=== PATIENT | female | born 1960 | race Caucasian/White ===

== ENCOUNTER 2018-01-14 14:36 | Emergency (ER) | payer BC, OTHER ==
[~2018-01-14] VITALS: Ht 154.9 cm; Wt 107.0 kg
[~2018-01-14 14:36] MED LIST: ALPR.5 PO; AMOCLA875 PO; ATEN25 PO; ATEN50 PO; CEPH500 PO; CIPR500 PO; CITA20 PO; DOCU100 PO; Diflucan100 MG PO; ERGO50000 PO; FLUC150A PO; HYDACE5 PO; HYDR1TAB94 PO; IBUP600 PO; LEVFLO500; LEVSOD50 PO; LISI5 PO; Norco 5-325 Ta1 EACH PO; Norco 7.5-3251 EACH PO; OMEP20ER PO; OXYACE5T PO; OXYB5 PO; OXYC5; PHENERGAN25 MG RC; PROM25 PO; Percocet 5-3251 EACH PO; RANI150 PO; TRAM50 PO; XARELTO10 MG PO; Zofran4 MG PO
[2018-01-14 15:29] LABS: BASOPHILS ABSOLUTE AUTO 0.07 K/mm3 (0.00-0.23); BASOPHILS PERCENT AUTO 1 % (0-2); EOSINOPHILS ABSOLUTE AUTO 0.19 K/mm3 (0.00-0.68); EOSINOPHILS PERCENT AUTO 2 % (0-6); Hemoglobin 12.7 g/dL (11.5-16.0); IMMATURE GRAN ABSOLUTE AUTO 0.09 K/mm3 (0.00-0.10); IMMATURE GRAN PERCENT AUTO 1 % (0-1); LYMPHOCYTES ABSOLUTE AUTO 2.47 K/mm3 (0.84-5.20); LYMPHOCYTES PERCENT AUTO 23 % (21-46); MONOCYTES ABSOLUTE AUTO 0.51 K/mm3 (0.16-1.47); MONOCYTES PERCENT AUTO 5 % (4-13); Mean Corpuscular HGB 31.1 pg (26.0-34.0); Mean Corpuscular HGB Conc 32.6 g/dL (31.5-36.5); Mean Corpuscular Volume 96 fL (80-100); Mean Platelet Volume 10.7 fL (9.1-12.4); NEUTROPHILS ABSOLUTE AUTO 7.43 K/mm3 (1.96-9.15); NEUTROPHILS PERCENT AUTO 69 % (41-73); Platelet Count 255 K/mm3 (150-400); RDW Coefficient Variation 12.8 % (11.7-14.2); Red Blood Cell Count 4.08 M/mm3 (3.80-5.20); White Blood Cell Count 10.76 K/mm3 (4.00-11.30)
[2018-01-14 15:50] LABS: Alanine Aminotransfer (ALT/SGP 22 U/L (12-78); Albumin, Blood 3.9 g/dL (3.4-5.0); Alk Phos 106 U/L (50-136); Anion Gap 6 mmol/L (6-16); Aspartate Aminotrans (AST/SGOT 13 U/L (12-37); Bilirubin, Total 0.2 mg/dL (0.1-1.0); Blood Urea Nitrogen 15 mg/dL (8-24); Bun/Creatinine Ratio 22.3 (12.0-20.0); CO2, Blood 27 mmol/L (21-32); Calcium, Blood 8.9 mg/dL (8.5-10.1); Chloride, Blood 109 mmol/L (98-108); Creatinine, Blood 0.67 mg/dL (0.40-1.00); Globulin, Blood 3.8 g/dL (2.2-4.0); Glomerular Filtration Rate >60 (60-); Glucose, Blood 96 mg/dL (70-99); Potassium, Blood 3.9 mmol/L (3.5-5.5); Sodium, Blood 142 mmol/L (136-145); Total Protein, Blood 7.7 g/dL (6.4-8.2)
[2018-01-14] MEDS ORDERED: MAGOXI400 PO (17:19)
[2018-01-14] MEDS ORDERED: LEVSOD125 PO (17:20)
[2018-01-14] MEDS ORDERED: LISI20 PO (17:20)
[2018-01-14 17:23] LABS: Source, Urine Clean Catch
[2018-01-14 17:26] LABS: Bilirubin, Urine Neg (Neg); Blood, Urine Neg (Neg); Glucose Qualitative, Urine Neg (Neg); Ketones, Urine Neg (Neg); Leukocyte Esterase, Urine 2+ (Neg); Nitrite, Urine Neg (Neg); Protein, Urine Neg (Neg); Specific Gravity, Urine 1.005 (1.003-1.022); Urobilinogen, Urine NORM (Normal)
[2018-01-14 17:32] LABS: Appearance, Urine Clear (Clear); Color, Urine Yellow (P-Yellow)
[2018-01-14 17:37] LABS: Red Blood Cells, Urine 0-2 /hpf (0-2); Squamous Epithelial Cells Few /hpf (Few)
[2018-01-14 17:38] LABS: Bacteria Few /hpf
[2018-01-14] MEDS ORDERED: CEFD300 PO (19:12)
[2018-01-14] MEDS ORDERED: HYDR1TAB94 PO (19:12)
[2018-01-14] MEDS ORDERED: Zofran Odt4 MG PO (19:12)
== END 2018-01-14 20:09 | disposition home or self-care (01) ==
LOC: ER 14:36
PROVIDERS: Emergency Medicine; Internal Medicine
DX: N12 Tubulo-interstitial nephritis, not specified as acute or chronic (principal); I10 Essential (primary) hypertension; Z88.1 Allergy status to other antibiotic agents; Z79.899 Other long term (current) drug therapy; Z87.442 Personal history of urinary calculi; Z90.710 Acquired absence of both cervix and uterus; Z90.49 Acquired absence of other specified parts of digestive tract
CPT/HCPCS: 76770; 80053; 81001; 85025; 96361; 96374; 96375; 99284; J0696; J1170; J1885; J7030

== ENCOUNTER → 2018-01-21 | Outpatient (CLI) | payer BC, OTHER ==
[~2018-01-21] MED LIST changes: +CEFD300 PO; +LEVSOD125 PO; +LISI20 PO; +MAGOXI400 PO; +Zofran Odt4 MG PO
== END | disposition home or self-care (01) ==
LOC: LAB 11:10
DX: R10.9 Unspecified abdominal pain (principal)
CPT/HCPCS: 87077; 87086; 87186

== ENCOUNTER → 2018-01-31 | Outpatient (CLI) | payer BC, OTHER | END | disposition home or self-care (01) | LOC: LAB UCHC 16:18 | DX: R10.9 Unspecified abdominal pain (principal) | CPT/HCPCS: 87086 ==

== ENCOUNTER 2025-05-17 02:26 | Day surgery (SDC) | payer BC ==
[2025-05-17] MEDS ORDERED: Lidocaine HCl 4% Cream 5 GM ONE (08:29)
== END 2025-05-17 23:00 | disposition home or self-care (01) ==
LOC: WOUND 02:26
DX: S91.001A Unspecified open wound, right ankle, initial encounter (principal); Z96.661 Presence of right artificial ankle joint; X58.XXXA Exposure to other specified factors, initial encounter
CPT/HCPCS: A9270; G0463

== ENCOUNTER 2025-05-25 02:26 | Day surgery (SDC) | payer BC ==
[2025-05-25] MEDS ORDERED: Lidocaine HCl 4% Cream 5 GM ONE (10:20)
== END 2025-05-25 23:00 | disposition home or self-care (01) ==
LOC: WOUND 02:26
DX: S91.001A Unspecified open wound, right ankle, initial encounter (principal); X58.XXXA Exposure to other specified factors, initial encounter
CPT/HCPCS: A9270

== ENCOUNTER 2025-06-01 04:22 | Day surgery (SDC) | payer BC ==
[2025-06-01] MEDS ORDERED: Lidocaine HCl 4% Cream 5 GM ONE (10:22)
== END 2025-06-01 22:00 | disposition home or self-care (01) ==
LOC: WOUND 04:22
DX: S91.001A Unspecified open wound, right ankle, initial encounter (principal); I10 Essential (primary) hypertension; X58.XXXA Exposure to other specified factors, initial encounter
CPT/HCPCS: A9270

== ENCOUNTER 2025-06-08 00:43 | Day surgery (SDC) | payer BC ==
[2025-06-08] MEDS ORDERED: Lidocaine HCl 4% Cream 5 GM ONE (09:52)
== END 2025-06-08 23:00 | disposition home or self-care (01) ==
LOC: WOUND 00:43
DX: S91.001A Unspecified open wound, right ankle, initial encounter (principal); I10 Essential (primary) hypertension; Z96.661 Presence of right artificial ankle joint; X58.XXXA Exposure to other specified factors, initial encounter
CPT/HCPCS: A9270; G0463

== ENCOUNTER 2025-06-22 01:15 | Day surgery (SDC) | payer BC | END 2025-06-22 23:00 | disposition home or self-care (01) | LOC: WOUND 01:15 | DX: S81.001A Unspecified open wound, right knee, initial encounter (principal); I10 Essential (primary) hypertension; W57.XXXA Bitten or stung by nonvenomous insect and other nonvenomous arthropods, initial encounter | CPT/HCPCS: G0463 ==

== ENCOUNTER 2025-07-06 08:26 | Day surgery (SDC) | payer BC | END 2025-07-06 23:00 | disposition home or self-care (01) | LOC: WOUND 08:26 | DX: S91.001D Unspecified open wound, right ankle, subsequent encounter (principal); L08.89 Other specified local infections of the skin and subcutaneous tissue; I10 Essential (primary) hypertension; Z87.828 Personal history of other (healed) physical injury and trauma | CPT/HCPCS: G0463 ==

== ENCOUNTER 2025-07-15 09:09 | Day surgery (SDC) | payer BC | END 2025-07-15 23:00 | disposition home or self-care (01) | LOC: WOUND 09:09 | DX: S91.001D Unspecified open wound, right ankle, subsequent encounter (principal); I10 Essential (primary) hypertension; Z87.828 Personal history of other (healed) physical injury and trauma | CPT/HCPCS: G0463 ==

== ENCOUNTER 2025-10-29 07:30 | Observation (INO) | payer BC ==
[~2025-10-29] VITALS: Ht 154.9 cm; Wt 96.0 kg
[~2025-10-29 07:30] MED LIST changes: +GABA300 PO; -LISI20 PO; +Prinivil10 MG PO
[2025-11-02] VITALS (22 sets, daily range): BP systolic 131–149; BP diastolic 61–83
[2025-11-02] MEDS ORDERED: CeFAZolin Sodium 2,000 MG in NS 100 ML IV SCH (06:20)
[2025-11-02] MEDS ORDERED: Tranexamic Acid 100 ML IV SCH (06:20)
[2025-11-02] MEDS ORDERED: Ropivacaine 0.5% HCl/Pf 123.125 MG,EPINEPHrine HCL 0.25 MG,Ketorolac Tromethamine 15 MG... INFIL SCH (06:20)
[2025-11-02] MEDS ORDERED: FentaNYL Citrate 50 MCG/ML 2 ML Injection ONE ×3 (06:46→18:29)
[2025-11-02] MEDS ORDERED: Ondansetron HCl 2 MG / ML 2ML Vial ONE ×2 (06:49→15:58)
[2025-11-02] MEDS ORDERED: Dexamethasone Sod Phos 10 MG/ML 1ML VIAL ONE (06:49)
[2025-11-02] MEDS ORDERED: Rocuronium Bromide 10 MG/ML 5ML Injection IV ONE (06:49)
[2025-11-02] MEDS ORDERED: Bupivacaine 0.5% HCl 5 MG/ML 30MLVIAL ONE (07:03)
[2025-11-02] MEDS ORDERED: CeFAZolin Sodium 2,000 MG VIAL ONE (07:03)
--- NOTE | 2025-11-02 07:16 | NUR ---
EARING TAPED TO LEFT EAR, WAIVER SIGNED. NO OTHER JEWELRY ON PER PATIENT. KNEE HIGH DARRYL HOSE WITH CALF PAS APPLIED TO LLE.
--- NOTE | 2025-11-02 07:20 | NUR ---
TIME OUT WITH DR BURGOS FOR POPLITEAL AND ADDUCTOR CANAL NERVE BLOCK AT 0724. 2L O2/NC IN PLACE. MONITOR INTACT. START TIME 07, END 0737.
--- NOTE | 2025-11-02 07:43 | NUR ---
DR PERERA AT BEDSIDE SPEAKING TO PATIENT ABOUT DELAY FOR SURGERY.
--- NOTE | 2025-11-02 08:02 | NUR ---
PATIENT SITTING UP IN BED RESTING. PLAN FOR PRIVATE ROOM ON SURGICAL FLOOR FOR MORE COMFORT WHILE WAITING FOR SURGERY. CALL LIGHT IN PLACE.
[2025-11-02] MEDS ORDERED: FLU VACC TS2025-26(6MOS UP)/PF 45 MCG/0.5 ML SYRINGE IM SCH (08:35)
--- NOTE | 2025-11-02 08:45 | NUR ---
ARRIVAL TO SURGICAL UNIT VIA GOURNEY ABLE TO STAND & AMBULATE SAFELY TO BATHROOM TO VOID USING FWW. PPP. ABLE TO WIGGLE TOES BUT DENIES PAIN POST BLOCK.
--- NOTE | 2025-11-02 08:49 | NUR ---
TRANSFERED PATIENT TO ROOM 212, REPORT GIVEN TO ANGELES BROOKS RN.
--- NOTE | 2025-11-02 14:21 | NUR ---
TO DAY SURGERY VIA [id number]
[2025-11-02] MEDS ORDERED: Magnesium Sulfate 500 MG / ML 2ML Vial ONE (15:02)
[2025-11-02] MEDS ORDERED: Midazolam HCl 1MG / ML 2ML Vial ONE (15:16)
[2025-11-02] MEDS ORDERED: HYDROmorphone HCl/Pf 1MG SYR ONE ×2 (15:29→18:39)
--- NOTE | 2025-11-02 15:57 | NUR ---
11/02/25 1557 Gabrielle Rowell PATIENT RECEIVED NERVE BLOCK RIGHT POPITEAL AND ADDUCTOR PERFORMED BY IN THE PREOP SETTING AT 0730.
[2025-11-02] MEDS ORDERED: Metoclopramide HCl 5MG / ML 2ML Vial ONE (15:58)
[2025-11-02] MEDS ORDERED: ePHEDrine Sulfate 50 MG/ML 1ML Injection IV PRN (16:10)
[2025-11-02] MEDS ORDERED: Metoclopramide HCl 5MG / ML 2ML Vial IV PRN (16:10)
[2025-11-02] MEDS ORDERED: HYDROmorphone HCl/Pf 1MG SYR IV PRN ×2 (16:10→19:35)
[2025-11-02] MEDS ORDERED: Morphine Sulfate 4 MG/1 ML Injection IV PRN (16:10)
[2025-11-02] MEDS ORDERED: Ondansetron HCl 2 MG / ML 2ML Vial IV PRN (16:10)
[2025-11-02] MEDS ORDERED: FentaNYL Citrate 50 MCG/ML 2 ML Injection IV PRN ×2 (16:15)
[2025-11-02] MEDS ORDERED: FentaNYL Citrate 50 MCG/ML 5 ML Injection ONE (16:37)
[2025-11-02] MEDS ORDERED: CeFAZolin Sodium 1000 mg Vial ONE (17:41)
[2025-11-02] MEDS ORDERED: Sugammadex Sodium 200 MG/2ML SDV (100 MG/ML) ONE (18:17)
[2025-11-02] MEDS ORDERED: OxyCODONE 5 mg/Acetamin 325 mg TABLET PO PRN (18:40)
[2025-11-02] MEDS ORDERED: Morphine Sulfate 4 MG/1 ML Injection ONE (19:27)
[2025-11-02] MEDS ORDERED: HYDROcodone 5-APAP 325 TAB PO PRN (19:35)
--- NOTE | 2025-11-02 20:05 | NUR ---
PACU TRANSFER PT ARRIVED FROM PACU AT APPROX 2004 TODAY S/P RIGHT ORIF. AMINA WRAP AND SPLIT IN PLACE; BRISK CAP REFILL AND SLIGHT SENSATION NOTED. REPORTS 7/10 PAIN, PLAN TO MEDICATE PER EMAR. RLE ELEVATED IN PILLOWS. PT A/OX4 WITH VSS. DENIES SOB OR CHEST PAIN, ON RA. BALJINDER ICE WATER AND JELLO. PT DENIES NEEDS. HAS CALL LIGHT IN REACH. POST VITALS ON GOING PER ORDERS.
[2025-11-03 00:27] VITALS: BP 140/68
[2025-11-03 03:24] VITALS: BP 137/70
--- NOTE | 2025-11-03 03:47 | NUR ---
SHIFT SUMMARY POD 1 S/P ORIF OF RIGHT ANKLE; SOFT CAST/AMINA TO RLE CDI. HAS BRISK CAP REFILL, PT ABLE TO WIGGLE TOES SLIGHTLY. PT A/OX4 WITH VSS. PAIN MANAGED PER EMAR, REQUIRED IV FOR BREAKTHROUGH PAIN. PT REPORTS FEELING ANXIOUS AND UNABLE TO SLEEP MUCH THIS SHIFT, DESPITE MELATONIN. PT BALJINDER PO INTAKE- JUST CRACKERS, JELLO AND WATER AT THIS POINT. DENIES N/V. IS NWB TO RLE, ABLE TO STAND/PIVOT TO BSC. IS VOIDING. IV SL. PLAN TO WORK WITH THERAPY IN THE MORNING. HAS CALL LIGHT IN REACH AND ABLE TO MAKE NEEDS KNOWN. WILL GIVE REPORT TO ONCOMING RN.
[2025-11-03 07:04] VITALS: BP 129/63
[2025-11-03 09:23] LABS: BASOPHILS ABSOLUTE AUTO 0.05 K/mm3 (0.00-0.23); BASOPHILS PERCENT AUTO 1 % (0-2); EOSINOPHILS ABSOLUTE AUTO 0.17 K/mm3 (0.00-0.68); EOSINOPHILS PERCENT AUTO 2 % (0-6); Hematocrit 33.2 % (33.0-51.0); Hemoglobin 11.0 g/dL (11.5-16.0); IMMATURE GRAN ABSOLUTE AUTO 0.03 K/mm3 (0.00-0.10); IMMATURE GRAN PERCENT AUTO 0 % (0-1); LYMPHOCYTES ABSOLUTE AUTO 1.82 K/mm3 (0.84-5.20); LYMPHOCYTES PERCENT AUTO 20 % (21-46); MONOCYTES ABSOLUTE AUTO 0.68 K/mm3 (0.16-1.47); MONOCYTES PERCENT AUTO 7 % (4-13); Mean Corpuscular HGB Conc 33.1 g/dL (31.5-36.5); Mean Corpuscular Volume 97 fL (80-100); NEUTROPHILS ABSOLUTE AUTO 6.45 K/mm3 (1.96-9.15); NEUTROPHILS PERCENT AUTO 70 % (41-73); NRBC ABSOLUTE 0.00 K/mm3 (0.00-0.02); NRBC Auto 0.0 /100 WBC (0.0-0.2); Platelet Count 256 K/mm3 (150-400); RDW Coefficient Variation 12.3 % (11.7-14.2); RDW Standard Deviation 43.8 fL (35.1-46.3)
[2025-11-03 09:48] LABS: Alanine Aminotransfer (ALT/SGP 25.0 U/L (12-78); Albumin, Blood 3.3 g/dL (3.4-5.0); Albumin/Globulin Ratio 1.1 (0.8-1.8); Anion Gap 9.0 mmol/L (3-11); Aspartate Aminotrans (AST/SGOT 21.0 U/L (12-37); Bilirubin, Total 0.8 mg/dL (0.1-1.0); Blood Urea Nitrogen 19.0 mg/dL (8-24); CO2, Blood 26.0 mmol/L (21-32); Calcium, Blood 8.5 mg/dL (8.5-10.1); Chloride, Blood 104.0 mmol/L (98-108); Creatinine, Blood 0.66 mg/dL (0.40-1.00); Globulin, Blood 3.1 g/dL (2.2-4.0); Glucose, Blood 140.0 mg/dL (70-99); Potassium, Blood 3.8 mmol/L (3.5-5.5); Sodium, Blood 135.0 mmol/L (136-145); Total Protein, Blood 6.4 g/dL (6.4-8.2)
[2025-11-03] MEDS ORDERED: Aspir 8181 MG PO (10:59)
--- NOTE | 2025-11-03 11:12 | NUR ---
DISCHARGE HOME PT DISCAHRGED AFTER MEETING WITH PHYSICAL THERAPY. ORDERS RECEVIED. PT EXCORTED OUT VIA W/C ACCOMPANIED BY [employer].
== END 2025-11-03 11:17 | disposition home or self-care (01) ==
LOC: SURS 11-02 05:33 → UNDOADMOB 11-02 05:33 → SURS 11-02 05:34
PROVIDERS: Podiatrist Foot & Ankle Surgery; ADMIT Internal Medicine
PROC: 0SW Lower Joints, Revision (ICD-10-PCS; principal; 2025-11-02 15:00)
PROC: 0QSG04Z Reposition Right Tibia with Internal Fixation Device, Open Approach (ICD-10-PCS; principal; 2025-11-02 15:00)
PROC: 0L8N0ZZ Division of Right Lower Leg Tendon, Open Approach (ICD-10-PCS; principal; 2025-11-02 15:00)
DX: M19.071 Primary osteoarthritis, right ankle and foot (principal); S82.51XA Displaced fracture of medial malleolus of right tibia, initial encounter for closed fracture; X58.XXXA Exposure to other specified factors, initial encounter; I10 Essential (primary) hypertension; K21.9 Gastro-esophageal reflux disease without esophagitis; E03.9 Hypothyroidism, unspecified; Z79.890 Hormone replacement therapy
CPT/HCPCS: 36415; 73610; 80053; 85025; 97161; 97530; A9270; C1713; C1769; C1776; J0690; J1100; J1171; J2250; J2270; J2405; J2704; J2765; J3010; J3475; J7120